=== PATIENT | female | born 1950 | race Caucasian/White ===

== ENCOUNTER 2019-02-22 09:13 | Day surgery (SDC) | payer BC, MEDICARE ==
[~2019-02-22] VITALS: Ht 167.6 cm; Wt 85.0 kg
[2019-02-22] VITALS (8 sets, daily range): BP systolic 104–127; BP diastolic 55–67
[2019-02-22] MEDS ORDERED: normal saline 1,000 ML IV SCH (09:40)
[2019-02-22] MEDS ORDERED: diphenhydrAMINE 25mg capsule PO PRN (09:40)
[2019-02-22] MEDS ORDERED: FURO-150 PO (10:09)
[2019-02-22] MEDS ORDERED: CLOP75TA35 PO (10:09)
[2019-02-22] MEDS ORDERED: METH-604 PO (10:09)
[2019-02-22] MEDS ORDERED: ATOR40TA PO (10:09)
[2019-02-22] MEDS ORDERED: LEVE500T PO (10:09)
[2019-02-22] MEDS ORDERED: ALEN70TA6 PO (10:09)
[2019-02-22] MEDS ORDERED: ISOS30TA9 PO (10:09)
[2019-02-22] MEDS ORDERED: NITR0.4T51 SL (10:09)
[2019-02-22] MEDS ORDERED: NAPR-1115 PO (10:09)
[2019-02-22] MEDS ORDERED: METO50TA7 PO (10:09)
[2019-02-22 10:23] LABS: BASOPHILS % (AUTO) 1.1 % (0-1); EOSINOPHILS # (AUTO) 0.2 X10'3 (0-0.9); EOSINOPHILS % (AUTO) 3.8 % (0-6); HEMATOCRIT 35.8 % (35.0-45.0); HEMOGLOBIN 12.1 g/dl (12.0-16.0); LYMPHOCYTES # (AUTO) 0.7 X10'3 (1.1-4.8); LYMPHOCYTES % (AUTO) 15.1 % (21-51); MEAN CORPUSCULAR HEMOGLOBIN 29.8 PG (27.0-31.0); MEAN CORPUSCULAR HGB CONC 33.7 g/dL (33.0-36.5); MEAN CORPUSCULAR VOLUME 88.6 FL (78-98); MEAN PLATELET VOLUME 7.5 FL (7.4-10.4); MONOCYTES # (AUTO) 0.5 X10'3 (0-0.9); NEUTROPHILS # (AUTO) 3.2 X10'3 (1.8-7.7); PLATELET COUNT 136 X10'3 (140-440); RED BLOOD COUNT 4.04 X10'6 (4.20-5.60); RED CELL DISTRIBUTION WIDTH 14.7 % (11.5-14.5); WHITE BLOOD COUNT 4.6 X10'3 (4.5-11.0)
[2019-02-22 10:38] LABS: ALBUMIN 3.7 G/DL (3.4-5.0); ANION GAP 8 (8-16); BLOOD UREA NITROGEN 17 MG/DL (7-18); BUN/CREATININE RATIO 18.7 (6.6-38.0); CALCIUM 9.5 MG/DL (8.5-10.1); CHLORIDE 108 MMOL/L (99-107); CREATININE 0.91 MG/DL (0.40-0.90); GLUCOSE 111 MG/DL (70-104); MAGNESIUM 1.8 MG/DL (1.5-2.4); POTASSIUM 3.6 MMOL/L (3.5-5.1); SODIUM 143 MMOL/L (135-145); TOTAL CARBON DIOXIDE 27.1 MMOL/L (24-32); eGFR 62 ML/MIN
[2019-02-22] MEDS ORDERED: hydrocortisone sod succ/PF 100mg/2ml inj. ONE (10:46)
[2019-02-22] MEDS ORDERED: midazolam 2 mg/2 ml injection ONE (10:47)
[2019-02-22] MEDS ORDERED: fentaNYL/PF 50MCG/1 ML 2ML syringe ONE (10:47)
[2019-02-22] MEDS ORDERED: iohexol 350 MG/ML 50ML vial IV ONE ×2 (10:47→11:53)
[2019-02-22] MEDS ORDERED: iohexol 350MG/ML 100ml bottle IV ONE (10:47)
[2019-02-22] MEDS ORDERED: LIDOcaine 1% (10mg/ml)w/preservative injection 20ml MDV ONE (10:47)
[2019-02-22] MEDS ORDERED: heparin 1,000unit/ml 10ml vial 10 ML ONE (11:56)
--- NOTE | 2019-02-22 12:38 | NUR ---
PER DR BLAIR, CT CANCELLED TODAY.
== END 2019-02-22 15:37 | disposition home or self-care (01) ==
LOC: SSTAY O 09:13
PROVIDERS: ATTEND Internal Medicine Cardiovascular Disease
DX: I25.10 Atherosclerotic heart disease of native coronary artery without angina pectoris (principal); I25.82 Chronic total occlusion of coronary artery; Z95.1 Presence of aortocoronary bypass graft; M81.0 Age-related osteoporosis without current pathological fracture; E78.00 Pure hypercholesterolemia, unspecified; I27.20 Pulmonary hypertension, unspecified; M35.3 Polymyalgia rheumatica; I08.3 Combined rheumatic disorders of mitral, aortic and tricuspid valves; I73.9 Peripheral vascular disease, unspecified; E05.90 Thyrotoxicosis, unspecified without thyrotoxic crisis or storm; Z91.041 Radiographic dye allergy status; Z98.890 Other specified postprocedural states; G40.909 Epilepsy, unspecified, not intractable, without status epilepticus; Z95.5 Presence of coronary angioplasty implant and graft
CPT/HCPCS: 36415; 80048; 83735; 85025; 85610; 93005; 93461; 99152; 99153; A6257; J1644; J1720; J2001; J2250; J3010; J7030; Q0163; Q9967; A4620; C1760; C1769; C1894